=== PATIENT | female | born 1960 | race Caucasian/White ===

== ENCOUNTER 2024-11-21 20:49 | Emergency (ER) | payer MEDICAID, OTHER | END 2024-11-21 21:28 | disposition home or self-care (01) | LOC: BURERS 20:49 | DX: S60.222A Contusion of left hand, initial encounter (principal); D68.9 Coagulation defect, unspecified; I48.91 Unspecified atrial fibrillation; E11.9 Type 2 diabetes mellitus without complications; J44.9 Chronic obstructive pulmonary disease, unspecified; X58.XXXA Exposure to other specified factors, initial encounter; Z87.891 Personal history of nicotine dependence | CPT/HCPCS: 99283 ==